=== PATIENT | female | born 1990 | race Caucasian/White ===

== ENCOUNTER → 2019-01-05 09:08 | Outpatient (CLI) | payer BC ==
[2014-06-02 06:55] VITALS: BMI 39.2
[~2019-01-05 09:08] MED LIST: HYDROCODONE-APA1 TAB PO; PRILOSEC20 MG PO
== END | disposition home or self-care (01) ==
LOC: D.MRI 09:08
PROVIDERS: ATTEND Clinical Nurse Specialist Adult Health
DX: R93.2 Abnormal findings on diagnostic imaging of liver and biliary tract (principal)